=== PATIENT | female | born 1985 | race Caucasian/White ===

== ENCOUNTER 2022-12-19 22:38 | Outpatient (CLI) | payer BC, SELFPAY | END 2022-12-19 22:39 | disposition home or self-care (01) | LOC: AMB 12-21 11:05 | PROVIDERS: Visit Provider Family Medicine | DX: R56.9 Unspecified convulsions (principal) | CPT/HCPCS: A0425; A0427 ==

== ENCOUNTER 2022-12-19 23:40 | Emergency (ER) | payer BC, SELFPAY ==
[2022-12-19 23:44] VITALS: BP 110/76; PULSE 82; RESP 16; TEMP 37.4; O2SAT 98; BMI 17.4
[2022-12-20] VITALS (14 sets, daily range): BP systolic 112–123; BP diastolic 75–98; PULSE 88–107; O2SAT 95–98
--- NOTE | 2022-12-20 01:34 | CRLHL7_ITS ---
For Patients: As a result of the Century Cures Act, medical imaging exams and procedure reports are released immediately into your electronic medical record. You may view this report before your referring provider. If you have questions, please contact your health care provider. INDICATION: Closed head injury, seizure TECHNIQUE: CT head without contrast. COMPARISON: None FINDINGS: CSF spaces: Within normal limits for age. Brain parenchyma: The patrick-white differentiation is normal. No sign of mass, hemorrhage, or midline shift. Skull base and calvarium: The visualized paranasal sinuses and mastoid air cells demonstrate no acute or significant findings. The visualized orbits are grossly unremarkable. No skull fractures. IMPRESSION: Unremarkable noncontrast head CT. Please note that all CT scans at this facility use dose modulation, iterative reconstruction, and/or weight-based dosing when appropriate to reduce radiation dose to as low as reasonably achievable. Dictated by Gin Porter MD @ 12/20/2022 3:07:29 AM (Electronically Signed)
[2022-12-20] MEDS: levETIRAcetam 500 MG TABLET PO (02:27)
--- NOTE | 2022-12-20 02:59 | ED.SEIZURE ---
HPI - Seizure General Chief Complaint: Seizure Stated Complaint: seizure Time Seen by Provider: 12/20/22 00:22 History of Present Illness HPI Narrative: 37-year-old woman presenting to the emergency department with her mother who while they were cleaning out cupboards chanelle heard Grace make a noise fall back striking her head on the wooden floor in the kitchen and was demonstrating generalized seizure behavior for about a minute and half. There was no loss of bowel or bladder control. Was a little confused upon waking but sounds to have cleared relatively rapidly. We are seeing Grace here in the emergency department less than an hour after event. Grace arrives requesting minimal workup noting that in 2019 had an extensive evaluation with Wilfred after a seizure-like event. This was thought to have been brought on by stress at the time as well she reports. Significant stressors lately with father entering hospice and Grace being a primary care provider. He 3 days ago. Has developed anxiety in this process with panic attacks. Following her 1st panic attack she says her heart rate has never really come down remains in the 90s generally. She is not having any neck pain. No significant head pain. No back pain. Apparently cognitively clear now. No noted nausea. Dentition feels normal. No fever. No cough cold symptoms. No abdominal pain. . Seizure History: Yes Place: home Related Data Previous Rx's Medication Instructions Recorded levetiracetam 500 mg tablet 500 mg PO BID #60 tabs 12/20/22 Allergies Allergy/AdvReac Type Severity Reaction Status Date / Time No Known Drug Allergies Allergy Verified 12/19/22 23:53 Review of Systems Status of ROS: Reports: 10 or more systems reviewed and unremarkable except as noted in History and below Exam Narrative: Exam Narrative: Pleasant. NAD. Fully alert. Wig is placed over generalized alopecia. Initial exam of the head does not reveal any injury. With removal of the wick there is a silver dollar sized swelling soft on the left upper posterior parietal scalp. Stippled red with azar from wig mesh/lining. Neck is supple nontender. Back is nontender. Cranial nerves 2-12 intact. Dentition intact. There is a light abrasion consistent with being bit on the right mid tongue. Lungs are clear. Heart is in a regular rate and rhythm. Abdomen is soft nontender. Skin otherwise is warm and dry without evidence of injury. Const: Vital Signs, click to edit/add: Vital Signs - 24 hr 12/19/22 23:44 12/20/22 00:50 12/20/22 00:58 Temperature 99.3 F Pulse Rate 97 91 Pulse Rate [Femora l] 82 Respiratory Rate 16 Blood Pressure 121/83 Blood Pressure [Ri ght Upper Arm] 110/76 Pulse Oximetry 98 97 97 Oxygen Delivery Me thod Room Air 12/20/22 00:58 12/20/22 01:01 12/20/22 01:01 Temperature Pulse Rate 94 92 96 Pulse Rate [Femora l] Respiratory Rate Blood Pressure 121/81 Blood Pressure [Ri ght Upper Arm] Pulse Oximetry 97 95 95 Oxygen Delivery Me thod 12/20/22 01:10 12/20/22 01:17 12/20/22 01:18 Temperature Pulse Rate 89 93 90 Pulse Rate [Femora l] Respiratory Rate Blood Pressure 123/76 Blood Pressure [Ri ght Upper Arm] Pulse Oximetry 96 97 95 Oxygen Delivery Me thod 12/20/22 01:20 12/20/22 01:30 12/20/22 01:32 Temperature Pulse Rate 89 89 107 H Pulse Rate [Femora l] Respiratory Rate Blood Pressure 112/98 H Blood Pressure [Ri ght Upper Arm] Pulse Oximetry 96 96 98 Oxygen Delivery Me thod 12/20/22 01:33 12/20/22 01:41 12/20/22 01:51 Temperature Pulse Rate 98 96 93 Pulse Rate [Femora l] Respiratory Rate Blood Pressure Blood Pressure [Ri ght Upper Arm] Pulse Oximetry 98 96 98 Oxygen Delivery Me thod 12/20/22 02:00 12/20/22 02:02 Temperature Pulse Rate 88 90 Pulse Rate [Femora l] Respiratory Rate Blood Pressure 112/75 Blood Pressure [Ri ght Upper Arm] Pulse Oximetry 96 97 Oxygen Delivery Me thod Documenting provider has reviewed patient's vital signs: yes Course Vital Signs Vital signs: Initial Vital Signs Temperature 99.3 F 12/19/22 23:44 Temperature Source Temporal Artery Scan 12/19/22 23:44 Pulse Rate 82 12/19/22 23:44 Pulse Rhythm 12/19/22 23:44 Pulse Strength 3+ Normal 12/19/22 23:44 Respiratory Rate 16 12/19/22 23:44 Blood Pressure 110/76 12/19/22 23:44 Blood Pressure Mean 87 12/19/22 23:44 Blood Pressure Position Sitting 12/19/22 23:44 Pulse Oximetry 98 12/19/22 23:44 Oxygen Delivery Method 12/19/22 23:44 Vital Signs Temperature 99.3 F 12/19/22 23:44 Pulse Rate 82 12/19/22 23:44 Respiratory Rate 16 12/19/22 23:44 Blood Pressure 110/76 12/19/22 23:44 Pulse Oximetry 98 12/19/22 23:44 Oxygen Delivery Method 12/19/22 23:44 Temperature 99.3 F 12/19/22 23:44 Pulse Rate 90 12/20/22 02:02 Respiratory Rate 16 12/19/22 23:44 Blood Pressure 112/75 12/20/22 02:02 Pulse Oximetry 97 12/20/22 02:02 Oxygen Delivery Method 12/19/22 23:44 MDM - Seizure MDM Narrative Medical decision making narrative: I want to be cognizant of Grace not wanting much workup. I speak later with Dr. Resendez who actually cared for Grace with that initial evaluation. Acknowledges that Grace was lost to follow-up. Recommendations are to repeat head CT, understandably. Initiate Keppra as this does appear to be a 2nd event. Monitored in ER without event. Head CT by my read was unremarkable. Soft tissue swelling though consistent with physical exam suspected area of impact. 500 mg of Keppra given the emergency department. See patient discharge plan Discharge Plan Discharge Clinical Impression: Other social stressor, Closed head injury, Seizure Patient Disposition: Home w/ Parent or Adult Condition: Improved Additional Instructions: Again I am you are sorry going through all of this. Do your best to get quality and regular sleep. Stay well-hydrated. Try to get in a little heart pumping exercise in daily and see the morning sun. I would expect a call from Dr. Walker office to try to arrange followup for sometime within the next 2 weeks. I am sure you would be welcome to call them as well. For now take the Keppra (levetiracetam) twice daily as prescribed. Also sorry to say that recommendations are not to drive for the next 3 months. Prescriptions: New levetiracetam 500 mg tablet 500 mg PO BID Qty: 60 2RF Follow Up/Referrals: Provider,Not a Local [Primary Care Provider] - Stand Alone Forms: MyHealth Info Instructions
--- NOTE | 2022-12-20 03:12 | ED.NURSE ---
Pt notified of normal Head CT results. Okay to discharge, per MD.
== END 2022-12-20 03:13 | disposition home or self-care (01) ==
PROVIDERS: Emergency Provider Family Medicine
DX: R56.9 Unspecified convulsions (principal); S09.90XA Unspecified injury of head, initial encounter; F43.9 Reaction to severe stress, unspecified; W17.89XA Other fall from one level to another, initial encounter
CPT/HCPCS: 70450; 99284; A9270